=== PATIENT | female | born 1960 | race Caucasian/White ===

== ENCOUNTER → 2018-09-06 | Outpatient (REF) | payer OTHER ==
[2018-09-06 11:59] LABS: BASO % 0.6 % (0.0-1.0); EOS % 0.3 % (0.0-3.0); LYMPH # 1.3 10^3/uL (1.5-4.5); LYMPH % 19.3 % (24.0-44.0); MEAN CORPUSCULAR HEMOGLOBIN 28.2 pg (27.0-33.0); MEAN CORPUSCULAR HGB CONC 32.6 g/dl (32.0-36.5); MEAN CORPUSCULAR VOLUME 86.7 fl (80.0-96.0); MONO # 0.5 10^3/uL (0.0-0.8); MONO % 6.9 % (0.0-5.0); NEUTROPHILS % 72.6 % (36.0-66.0); PLATELET COUNT, AUTOMATED 227 10^3/uL (150-450); RED BLOOD COUNT 4.96 10^6/uL (4.00-5.40); WHITE BLOOD COUNT 6.9 10^3/uL (4.0-10.0)
[2018-09-06 12:14] LABS: ALBUMIN 4.2 GM/DL (3.2-5.2); ALT/SGPT 30 U/L (12-78); BILIRUBIN,TOTAL 0.5 MG/DL (0.2-1.0); BLOOD UREA NITROGEN 16 MG/DL (7-18); CALCIUM LEVEL 9.2 MG/DL (8.5-10.1); CARBON DIOXIDE LEVEL 29 MEQ/L (21-32); CHLORIDE LEVEL 104 MEQ/L (98-107); CHOLESTEROL LEVEL 216 MG/DL (<200); FREE T4 1.11 NG/DL (0.76-1.46); GLOMERULAR FILTRATION RATE > 60.0 (>51); GLUCOSE, FASTING 104 MG/DL (70-100); HDL CHOLESTEROL 69 MG/DL (>40); LDL CHOLESTEROL 135 MG/DL (<100); NON-HDL-C 147 MG/DL; SODIUM LEVEL 140 MEQ/L (136-145); TOTAL PROTEIN 7.4 GM/DL (6.4-8.2); TRIGLYCERIDES LEVEL 62 MG/DL (<150)
[2018-09-06 12:16] LABS: PTH INTACT 46.9 PG/ML (18.5-88.0)
[2018-09-06 12:29] LABS: HEMOGLOBIN A1c 5.6 %
== END ==
LOC: M SFHCPLAZ 10:20
PROVIDERS: ATTEND Nurse Practitioner Family
DX: Z13.228 Encounter for screening for other metabolic disorders (principal); F32.9 Major depressive disorder, single episode, unspecified; E55.9 Vitamin D deficiency, unspecified

== ENCOUNTER → 2018-09-18 | Outpatient (CLI) | payer OTHER | LOC: M WHC 14:27 | PROVIDERS: ATTEND Nurse Practitioner Family | DX: Z12.31 Encounter for screening mammogram for malignant neoplasm of breast (principal) ==

== ENCOUNTER → 2018-10-02 | Outpatient (REF) | payer OTHER | LOC: M SFHCPLAZ 10:11 | PROVIDERS: ATTEND Nurse Practitioner Family | DX: Z01.419 Encounter for gynecological examination (general) (routine) without abnormal findings (principal) ==

== ENCOUNTER → 2020-09-08 | Outpatient (REF) | payer OTHER ==
[2020-09-08 10:07] LABS: HEMOGLOBIN 13.8 g/dl (12.0-15.5); MEAN CORPUSCULAR HEMOGLOBIN 28.7 pg (27.0-33.0); MEAN CORPUSCULAR HGB CONC 32.9 g/dl (32.0-36.5); MEAN CORPUSCULAR VOLUME 87.3 fl (80.0-96.0); PLATELET COUNT, AUTOMATED 216 10^3/uL (150-450); RED BLOOD COUNT 4.81 10^6/uL (4.00-5.40); WHITE BLOOD COUNT 7.1 10^3/uL (4.0-10.0)
[2020-09-08 10:53] LABS: HEMOGLOBIN A1c 5.4 %
[2020-09-08 10:56] LABS: ALBUMIN 3.7 GM/DL (3.2-5.2); ALT/SGPT 16 U/L (12-78); BILIRUBIN,TOTAL 0.9 MG/DL (0.2-1.0); BLOOD UREA NITROGEN 18 MG/DL (7-18); CALCIUM LEVEL 9.7 MG/DL (8.8-10.2); CARBON DIOXIDE LEVEL 28 MEQ/L (21-32); CHLORIDE LEVEL 107 MEQ/L (98-107); CHOLESTEROL LEVEL 200 MG/DL (<200); CREATININE FOR GFR 0.76 MG/DL (0.55-1.30); FREE T4 0.97 NG/DL (0.76-1.46); GLOMERULAR FILTRATION RATE > 60.0 (>45); GLUCOSE, FASTING 81 MG/DL (70-100); HDL CHOLESTEROL 66 MG/DL (>40); LDL CHOLESTEROL 119 MG/DL (<100); NON-HDL-C 134 MG/DL; POTASSIUM SERUM 4.8 MEQ/L (3.5-5.1); SODIUM LEVEL 141 MEQ/L (136-145); TOTAL PROTEIN 6.9 GM/DL (6.4-8.2); TRIGLYCERIDES LEVEL 77 MG/DL (<150)
[2020-09-08 12:09] LABS: TOTAL 25(OH) VITAMIN D 42.9 NG/ML (30.0-100.0)
== END ==
LOC: M SFHCPLAZ 08:08
PROVIDERS: ATTEND Nurse Practitioner Family
DX: R73.01 Impaired fasting glucose (principal); E78.5 Hyperlipidemia, unspecified; E55.9 Vitamin D deficiency, unspecified

== ENCOUNTER → 2020-10-04 | Outpatient (CLI) | payer OTHER ==
--- NOTE | 2020-10-04 14:00 | REPMRS ---
Patient History The patient states she had a clinical breast exam in 08/2020. Patient is postmenopausal. No known family history of cancer. Benign stereotactic core biopsy of the left breast, 2000. No Hormone Replacement Therapy Patient states no breast complaints today. Patient has signed MRS History Sheet. Digital Woman Screen Mammo: October 04, 2020 - Exam #: [id number] Bilateral CC and MLO view(s) were taken. Technologist: Clemencia Hazel, Technologist Prior study comparison: September 18, 2018, bilateral digital woman screen mammo performed at [facility]. 2016, bilateral digital mammo screening bilat, performed at [facility]. FINDINGS: The breast tissue is heterogeneously dense. This may lower the sensitivity of mammography. Screening. Digital screening (2D) mammography was performed bilaterally in the CC and MLO projections. Additionally, breast tomosynthesis (3D mammography) was performed bilaterally in the CC and MLO projections. Todays exam was compared to the prior exams(s). By history, the patient has no complaints of a palpable breast abnormality or other significant breast complaints. The breasts are unchanged in size and shape. Once again, dense heterogenous fibroglandular elements are seen bilaterally in a stable appearing pattern but to such a degree that the sensitivity of the mammogram in detecting cancer is decreased.There are no jl-soft tissue densities or spiculated masses. There is no internal architectural distortion. There are no suspicious jl-calcific clusters. Skin thickening or nipple retraction is not present. IMPRESSION: BI-RADS Category 2- Benign Findings(s). There is no evidence of malignant alteration of the breasts. Followup examination recommended in one year. The Volpara volumetric breast density category is C, the breasts are heterogenously dense which may obscure small masses.This mammogram was read with the assistance of Prematics,an FDA approved computer aided detection system for mammography.The lifetime Tyrer-Cuzick score is 5.8 % Negative x-ray reports should not delay surgical consultation if a dominant or clinically suspicious mass is present. Findings: Not all breast cancers can be identified by mammography. Therefore, we recommend that you continue to perform regular breast self-examination and physical examination and then promptly contact your physician of any concerns or changes. Adenosis and dense breasts may obscure an underlying neoplasm. Assessment: BI-RADS/ACR category 2 mammogram. Benign Findings. Recommendation Routine screening mammogram of both breasts in 1 year. Electronically Signed By: Alex Johnson DO 10/04/20 [id number]
--- NOTE | 2020-10-04 15:04 | DEXAMM ---
INDICATION: M85.80 OSTEOPENIA. COMPARISON: None. TECHNIQUE: Bone density was measured using dual-energy x-ray absorptiometry (DEXA). FINDINGS: AP SPINE L1-L4 BMD 1.263 g/cm2 Young Adult T-Score 0.6 Age Matched Z-Score 1.9. LT FEMUR, TOTAL BMD 0.804 g/cm2 Young Adult T-Score -1.6 Age Matched Z-Score -0.6. LT NECK BMD 0.783 g/cm2 Young Adult T-Score -1.8 Age Matched Z-Score -0.5. RT FEMUR, TOTAL BMD 0.806 g/cm2 Young Adult T-Score is -1.6 Age Matched Z-Score -0.6. RT NECK BMD 0.754 g/cm2 Young Adult T-Score -2.0 Age Matched Z-Score -0.8. IMPRESSION: There is normal bone density of the spine. There is low bone density of the left hip. There is low bone density of the right hip. FOLLOW-UP: Recommendation for the next bone density exam: 2 years. <Electronically signed by Constantino Hairston > 10/04/20 [id number]
== END ==
LOC: M WHC 12:49
PROVIDERS: ATTEND Nurse Practitioner Family
DX: Z12.31 Encounter for screening mammogram for malignant neoplasm of breast (principal); M85.851 Other specified disorders of bone density and structure, right thigh; M85.852 Other specified disorders of bone density and structure, left thigh

== ENCOUNTER 2020-11-06 16:52 | Inpatient (IN) | payer OTHER ==
[~2020-11-06] VITALS: Ht 160 cm; Wt 58.9 kg
--- NOTE | 2020-11-06 17:25 | REP ---
INDICATION: Altered Mental Status COMPARISON: None. TECHNIQUE: Portable AP view of the chest FINDINGS: The mediastinum and cardiac silhouette are within normal limits for portable technique. The lung delaney are clear without acute consolidation, effusion, or pneumothorax. Skeletal structures are intact. IMPRESSION: No acute cardiopulmonary process appreciated. <Electronically signed by Wm Candelaria > 11/06/20 [id number]
[2020-11-06 17:46] LABS: BASO % 0.7 % (0.0-1.0); EOS # 0.2 10^3/uL (0.0-0.5); EOS % 3.6 % (0.0-3.0); HEMATOCRIT 41.9 % (36.0-47.0); HEMOGLOBIN 13.6 g/dl (12.0-15.5); LYMPH # 1.6 10^3/uL (1.5-5.0); LYMPH % 25.5 % (24.0-44.0); MEAN CORPUSCULAR HEMOGLOBIN 27.9 pg (27.0-33.0); MEAN CORPUSCULAR HGB CONC 32.5 g/dl (32.0-36.5); MEAN CORPUSCULAR VOLUME 85.9 fl (80.0-96.0); MONO # 0.5 10^3/uL (0.0-0.8); MONO % 7.6 % (2.0-8.0); NEUTROPHILS # 3.8 10^3/uL (1.5-8.5); NEUTROPHILS % 62.4 % (36.0-66.0); PLATELET COUNT, AUTOMATED 210 10^3/uL (150-450); RED BLOOD COUNT 4.88 10^6/uL (4.00-5.40); WHITE BLOOD COUNT 6.1 10^3/uL (4.0-10.0)
[2020-11-06 18:24] LABS: ACETAMINOPHEN LEVEL < 2.0 UG/ML (10.0-30.0); ALT/SGPT 25 U/L (12-78); BILIRUBIN,DIRECT 0.1 MG/DL (0.0-0.2); BILIRUBIN,TOTAL 0.5 MG/DL (0.2-1.0); BLOOD UREA NITROGEN 21 MG/DL (7-18); CALCIUM LEVEL 9.3 MG/DL (8.8-10.2); CARBON DIOXIDE LEVEL 27 MEQ/L (21-32); CHLORIDE LEVEL 103 MEQ/L (98-107); CK-MB VALUE MASS 4.9 NG/ML (<3.6); CPK CREATINE PHOSPHOKINASE 174 U/L (26-192); ETHYL ALCOHOL (ETHANOL) < 0.003 % (0.000-0.010); GLOMERULAR FILTRATION RATE > 60.0 (>45); GLUCOSE, FASTING 98 MG/DL (70-100); MB/CK RELATIVE INDEX 2.82 (< OR =4); POTASSIUM SERUM 3.8 MEQ/L (3.5-5.1); SALICYLATE LEVEL < 1.7 MG/DL (5.0-30.0); SODIUM LEVEL 137 MEQ/L (136-145); TOTAL PROTEIN 7.4 GM/DL (6.4-8.2); TROPONIN I < 0.02 NG/ML (< 0.10)
[2020-11-06 18:37] LABS: RSV AMPLIFICATION NEGATIVE (NEGATIVE)
--- NOTE | 2020-11-06 19:04 | REPVR ---
PROCEDURE INFORMATION: Exam: CT Head Without Contrast Exam date and time: 11/06/2020 5:57 PM Age: 60 years old Clinical indication: Altered mental status/memory loss; Confusion or disorientation TECHNIQUE: Imaging protocol: Computed tomography of the head without contrast. Radiation optimization: All CT scans at this facility use at least one of these dose optimization techniques: automated exposure control; mA and/or kV adjustment per patient size (includes targeted exams where dose is matched to clinical indication); or iterative reconstruction. COMPARISON: No relevant prior studies available. FINDINGS: Brain: Small chronic appearing lacunar infarcts are visualized within the right cerebellar lobe. No acute intracranial hemorrhage is visualized. The white-redd differentiation is preserved demonstrating no acute territorial type infarct. There is no midline shift. Artifact limits evaluation of the mellisa. Cerebral ventricles: There is mild prominence of the ventricles and sulci, compatible with atrophy. Paranasal sinuses: Visualized sinuses are unremarkable. No fluid levels. Mastoid air cells: No mastoid effusion. Vasculature: Intracranial atherosclerosis visualized. Bones/joints: The calvarium demonstrates no evidence for a depressed fracture. Soft tissues: Unremarkable. IMPRESSION: 1. No acute intracranial hemorrhage or acute territorial type infarct. 2. Mild atrophy. 3. If further evaluation is clinically indicated, an MRI of the brain is recommended. Electronically signed by: Isael Sultana On 11/06/2020 19:03:31 PM
[2020-11-06] MEDS ORDERED: CITA20TA6 PO (19:25)
[2020-11-06] MEDS ORDERED: ECOT81TA5 PO (19:25)
[2020-11-06] MEDS ORDERED: D3 S20002 PO (19:25)
[2020-11-06] MEDS ORDERED: MAALOX 30 ML SUSP *UDC PO PRN (19:50)
[2020-11-06] MEDS ORDERED: MOM 30ML SUSPENSION UDC PO PRN (19:50)
--- NOTE | 2020-11-06 19:54 | ECGEPIP ---
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
--- NOTE | 2020-11-06 20:03 | HPEPDOC ---
[facility] Medical History & Physical Date of Admission Nov 06, 2020 Date of Service: Nov 06, 2020 History and Physical CHIEF COMPLAINT: Syncope and collapse HISTORY OF PRESENT ILLNESS: 60-year-old female with no known past medical history is brought in by EMS after being found on the ground and unresponsive at work. Patient regained consciousness and was alert and oriented in the emergency department she tells me she didn't recall what happened she knows that she fell and hit her head she also should she be her tongue when she woke up but she did not pass urine. She says she has a headache but she thinks is her seasonal allergies although she did endorse a bump on the back of her head where she fell. She denies any fevers chills chest pain and shortness of breath. She endorses a history of waking up in the middle the night approximately one month ago where she also be her tongue and it accidentally passed urine. She tells me this had never happened prior to that date. She denies a family history of seizures and denies ever having seizures herself. In the emergency department CT of the head was done does not s how intracranial hemorrhage. MRI brain was ordered. I discussed the case with our neurologist Dr. Alatorre who recommended patient be admitted for possible seizures and to start Keppra 500 mg twice a day and obtain EEG. PAST MEDICAL/SURGICAL HISTORY: Does not endorse past medical problems Appendectomy Left knee surgery Left elbow surgery SOCIAL HISTORY: Denies alcohol use currently she quit drinking many years Denies tobacco use currently she quit smoking many years ago Denies illicit drug use Works at [employer] FAMILY HISTORY: No family history of seizures ALLERGIES: Please see below. REVIEW OF SYSTEMS: 10 point review of systems complete all negative otherwise stated in HPI HOME MEDICATIONS: Please see below. PHYSICAL EXAMINATION: Constitutional: Awake and alert, in no apparent distress ENT: Sclera are clear. Mucosa is moist. Respiratory: Lungs CTA bilaterally. No respiratory distress. Cardiovascular: RRR S1 and S2 are normal, no murmur Gastrointestinal: Abdomen is soft, non distended, non tender, BS present. Musculoskeletal: No lower extremity edema. Neurologic: No focal neurological deficit. Mental Status: A&O x3, normal affect Skin: Scalp hematoma on the left side approximately 2 cm in diameter LABORATORY DATA: See below. IMAGING: See chart MICROBIOLOGY: Please see below. ee ASSESSMENT/PLAN 60-year-old female with no past medical history presents with syncope and collapse at work suspected to be from undiagnosed seizure activity. Patient made for further workup and management. # Suspected seizure: Discussed with Dr Alatorre neurologist. Will give her Keppra 500 BID. Fu MRI. EEG on Sunday. # Scalp hematoma: CT shows no intracranial hemorrhage from the fall. monitor. # DVT prophylaxis: ambulating. SCDs/TEDs only for now due to hematoma on scalp A Yousef Hospitalist Vital Signs Vital Signs Date Time Temp Pulse Resp B/P (MAP) Pulse Ox O2 Delivery O2 Flow Rate FiO2 11/06/20 19:00 67 18 155/77 (103) 96 Room Air 11/06/20 17:30 97.7 Laboratory Data Labs 24H Laboratory Tests 2 11/06/20 17:08: Immature Granulocyte % (Auto) 0.2, Neutrophils (%) (Auto) 62.4, Lymphocytes (%) (Auto) 25.5, Monocytes (%) (Auto) 7.6, Eosinophils (%) (Auto) 3.6H, Basophils (%) (Auto) 0.7, Neutrophils # (Auto) 3.8, Lymphocytes # (Auto) 1.6, Monocytes # (Auto) 0.5, Eosinophils # (Auto) 0.2, Basophils # (Auto) 0.0, Nucleated Red Blood Cells % (auto) 0.0, Anion Gap 7L, Glomerular Filtration Rate > 60.0, Calcium Level 9.3, Total Bilirubin 0.5, Direct Bilirubin 0.1, Aspartate Amino Transf (AST/SGOT) 28, Alanine Aminotransferase (ALT/SGPT) 25, Alkaline Phosphatase 71, Total Creatine Kinase 174, Creatine Kinase MB 4.9H, Creatine Kinase MB Relative Index 2.82, Troponin I < 0.02, Total Protein 7.4, Albumin 4.0, Albumin/Globulin Ratio 1.2, Thyroid Stimulating Hormone (TSH) 3.050, Salicylates Level < 1.7L, Acetaminophen Level < 2.0L, Ethyl Alcohol Level < 0.003 11/06/20 17:28: Coronavirus (COVID-19)(PCR) NEGATIVE, Influenza Type A (RT-PCR) NEGATIVE, Influenza Type B (RT-PCR) NEGATIVE, Respiratory Syncytial Virus (PCR) NEGATIVE CBC/BMP Laboratory Tests 11/06/20 17:08 Home Medications Scheduled Aspirin (Ecotrin) 81 Mg Tablet.dr, 81 MG PO DAILY Cholecalciferol (Vitamin D3) (Vitamin D3) 50 Mcg Capsule, 50 MCG PO DAILY Citalopram Hydrobromide (Citalopram HBr) 20 Mg Tablet, 20 MG PO DAILY Allergies Coded Allergies: No Known Allergies (Unverified , 11/06/20) A-FIB/CHADSVASC A-FIB History Current/History of A-Fib/PAF?: No JOSE MARCUS MD Nov 06, 2020 20:03
--- NOTE | 2020-11-06 21:28 | REPVR ---
PROCEDURE INFORMATION: Exam: MRA Head Without Contrast; Arteriography Exam date and time: 11/06/2020 8:54 PM Age: 60 years old Clinical indication: Syncope and collapse; Patient HX: PT states she passed out at work earlier today and came to in the ED no other symptoms. Nki, no prior mri; Additional info: CVA TECHNIQUE: Imaging protocol: Magnetic resonance angiography head without contrast. Exam focused on the arteries. COMPARISON: CT Head without contrast 11/06/2020 5:56 PM FINDINGS: ANTERIOR CIRCULATION: Right internal carotid artery: Intracranial segment is patent with no significant stenosis. No aneurysm. Right middle cerebral artery: No occlusion or significant stenosis. No aneurysm. Right anterior cerebral artery: No occlusion or significant stenosis. No aneurysm. Left internal carotid artery: Intracranial segment is patent with no significant stenosis. No aneurysm. 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 No significant stenosis or occlusion of this vessel. No aneurysm. Left anterior cerebral artery: No occlusion or significant stenosis. No aneurysm. POSTERIOR CIRCULATION: Right vertebral artery: A dominant right vertebral artery is identified. No significant stenosis or occlusion of the right vertebral artery. 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 There is asymmetric decreased signal intensity/flow distally. Basilar artery: No occlusion or significant stenosis. No aneurysm. Right posterior cerebral artery: Hypoplasia of the P1 segment of the right posterior cerebral artery. No significant stenosis or occlusion of the remaining right CHANGEOVER OPERATOR. The right posterior communicating artery is patent. No aneurysm. Left posterior cerebral artery: Hypoplasia of the P1 segment of the left posterior cerebral artery. No significant stenosis or occlusion of the remaining left CHANGEOVER OPERATOR. The left posterior communicating artery is patent. No aneurysm. IMPRESSION: 1. No large vessel arterial occlusion on this MRA head study. 2. A dominant right vertebral artery is identified. 3. 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 There is asymmetric decreased signal intensity/flow distally. 4. 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 5. Additional findings described above. Electronically signed by: Isael Sultana On 11/06/2020 21:28:17 PM
--- NOTE | 2020-11-06 21:39 | REPVR ---
PROCEDURE INFORMATION: Exam: MR Head Without Contrast Exam date and time: 11/06/2020 8:54 PM Age: 60 years old Clinical indication: Alteration of consciousness; Syncope and collapse; Patient HX: PT states she passed out at work earlier today and came to in the ED no other symptoms. Nki, no prior mri; Additional info: CVA TECHNIQUE: Imaging protocol: MR of the head without contrast. COMPARISON: CT Head without contrast 11/06/2020 5:56 PM FINDINGS: Brain: No restricted diffusion within the brain to suggest an acute infarct. Multiple small chronic lacunar infarcts are identified within the bilateral cerebellar lobes. Small chronic lacunar infarcts are also visualized within the left caudate head. A few tiny foci of FLAIR hyperintensity are visualized within the mellisa, suggestive of chronic ischemic changes. There are scattered foci of FLAIR hyperintensity within the cerebral white matter. There is no mass effect or restricted diffusion associated with these foci. In a patient this age, this likely represents chronic small vessel ischemic disease. No magnetic susceptibility intracerebral blood products/hemosiderin visualized. Cerebral ventricles: There is mild prominence of the ventricles and sulci, compatible with atrophy. Bones/joints: T1 hypointensity is identified in the bone marrow of the C3 vertebral body, although this is likely contributed by artifact with similar hypointensity within the posterior paraspinal soft tissues at this level. Evaluation of the cervical spine is limited. Paranasal sinuses: Minimal mucosal thickening of ethmoid air cells bilaterally. Mastoid air cells: Minimal mucosal thickening/effusion within right mastoid air cells. Orbital cavity: Unremarkable. Soft tissues: Soft tissue swelling/hematoma of the left posterior scalp. IMPRESSION: 1. No acute infarct. 2. Multiple small chronic lacunar infarcts are identified within the bilateral cerebellar lobes. Small chronic lacunar infarcts are also visualized within the left caudate head. 3. Mild white matter disease, likely representing chronic small vessel ischemic disease. 4. Mild atrophy. 5. Soft tissue swelling/hematoma of the left posterior scalp. 6. Additional findings described above. Electronically signed by: Isael Sultana On 11/06/2020 21:38:16 PM
[2020-11-06 21:50] VITALS: BP_SYST 121; BP_SYST 135; BP_SYST 138; BP_DIAS 66; BP_DIAS 77; BP_DIAS 79
[2020-11-06] MEDS: levETIRAcetam 250MG TABLET (KEPPRA) PO SCH (22:31)
[2020-11-06] MEDS: DOCUSATE SODIUM 100MG CAPSULE PO SCH (22:32)
[2020-11-07 06:00] VITALS: BP 101/59
[2020-11-07 06:00] LABS: HEMATOCRIT 40.9 % (36.0-47.0); HEMOGLOBIN 13.3 g/dl (12.0-15.5); MEAN CORPUSCULAR HEMOGLOBIN 27.9 pg (27.0-33.0); MEAN CORPUSCULAR HGB CONC 32.5 g/dl (32.0-36.5); MEAN CORPUSCULAR VOLUME 85.7 fl (80.0-96.0); PLATELET COUNT, AUTOMATED 197 10^3/uL (150-450); RED BLOOD COUNT 4.77 10^6/uL (4.00-5.40); WHITE BLOOD COUNT 7.7 10^3/uL (4.0-10.0)
[2020-11-07 06:36] LABS: BLOOD UREA NITROGEN 16 MG/DL (7-18); CALCIUM LEVEL 9.4 MG/DL (8.8-10.2); CARBON DIOXIDE LEVEL 30 MEQ/L (21-32); CHLORIDE LEVEL 106 MEQ/L (98-107); CREATININE FOR GFR 0.69 MG/DL (0.55-1.30); GLOMERULAR FILTRATION RATE > 60.0 (>45); GLUCOSE, FASTING 95 MG/DL (70-100); SODIUM LEVEL 140 MEQ/L (136-145)
[2020-11-07] MEDS: DOCUSATE SODIUM 100MG CAPSULE PO SCH ×2 (08:31→20:02)
[2020-11-07] MEDS: CitaloPRAM (CeleXA) 20 MG TAB PO SCH (08:31)
[2020-11-07] MEDS: levETIRAcetam 250MG TABLET (KEPPRA) PO SCH ×2 (08:31→20:02)
[2020-11-07 14:00] VITALS: BP 117/66
--- NOTE | 2020-11-07 16:34 | IPNPDOC ---
Subjective Date Seen The patient was seen on 11/07/20. Subjective Chief Complaint/HPI Mrs. Chaves is a 60 year old female who is here after being found unresponsive on the ground at work. This morning, she denies any chest pain or dyspnea. Will have to wait till Sunday for EEG. Objective Physical Examination General Exam: Positive: Alert, Cooperative Eye Exam: Negative: Sclera icteric Neck Exam: Positive: Supple Chest Exam: Positive: Clear to auscultation; Negative: Rales, Rhonchi, Wheezing Heart Exam: Positive: Rate Normal, Regular Rhythm Abdomen Exam: Positive: Normal bowel sounds, Soft; Negative: Tenderness Extremity Exam: Negative: Edema Neuro Exam: Positive: Cranial Nerves 3-12 NL Psych Exam: Positive: Mental status NL, Mood NL Assessment /Plan Assessment Mrs. Chaves is a 60 year old female who is here after being found unresponsive on the ground at work. On admission, case with discussed with Dr. Devi. Recommended Keppra 500mg BID, MRI, and EEG on Sunday. MRI was negative for acute infarct, but she has multiple small chronic lacunar infarcts and chronic small vessel ischemic disease. 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 Plan/VTE VTE Prophylaxis Ordered?: Yes Plan 1. Seizure -Keppra 500mg BID -MRI negative for acute stroke, but demonstrates multiple chronic lacunar infarcts and small vessel ischemic disease -MRA negative for LVO, but demonstrates hypoplastic left vertebral artery -Pending EEG for Sunday 2. Scalp hematoma -/ fall -Monitor 3. DVT ppx -Due to hematoma, no chemical ppx -SCD and TEDs Disposition: Pending EEG. VS, I&O, 24H, Fishbone Vital Signs/I&O Vital Signs Date Time Temp Pulse Resp B/P (MAP) Pulse Ox O2 Delivery O2 Flow Rate FiO2 11/07/20 14:00 98.1 64 18 117/66 (83) 96 Room Air I&O- Last 24 Hours up to 6 AM 11/07/20 06:00 Intake Total 430 ml Output Total 800 ml Balance -370 ml Laboratory Data 24H LABS Laboratory Tests 2 11/06/20 17:08: Immature Granulocyte % (Auto) 0.2, Neutrophils (%) (Auto) 62.4, Lymphocytes (%) (Auto) 25.5, Monocytes (%) (Auto) 7.6, Eosinophils (%) (Auto) 3.6H, Basophils (%) (Auto) 0.7, Neutrophils # (Auto) 3.8, Lymphocytes # (Auto) 1.6, Monocytes # (Auto) 0.5, Eosinophils # (Auto) 0.2, Basophils # (Auto) 0.0, Nucleated Red Blood Cells % (auto) 0.0, Anion Gap 7L, Glomerular Filtration Rate > 60.0, Calcium Level 9.3, Total Bilirubin 0.5, Direct Bilirubin 0.1, Aspartate Amino Transf (AST/SGOT) 28, Alanine Aminotransferase (ALT/SGPT) 25, Alkaline Phosphatase 71, Total Creatine Kinase 174, Creatine Kinase MB 4.9H, Creatine Kinase MB Relative Index 2.82, Troponin I < 0.02, Total Protein 7.4, Albumin 4.0, Albumin/Globulin Ratio 1.2, Thyroid Stimulating Hormone (TSH) 3.050, Salicylates Level < 1.7L, Acetaminophen Level < 2.0L, Ethyl Alcohol Level < 0.003 11/06/20 17:28: Coronavirus (COVID-19)(PCR) NEGATIVE, Influenza Type A (RT-PCR) NEGATIVE, Influenza Type B (RT-PCR) NEGATIVE, Respiratory Syncytial Virus (PCR) NEGATIVE 11/07/20 05:43: Nucleated Red Blood Cells % (auto) 0.0, Anion Gap 4L, Glomerular Filtration Rate > 60.0, Calcium Level 9.4 CBC/BMP Laboratory Tests 11/06/20 17:08 11/07/20 05:43 WAQAS RODRIGUEZ 6, 2021 16:34
[2020-11-07] MEDS: ACETAMINOPHEN TAB 650MG DOSE (2X325MG) PO PRN (20:02)
[2020-11-07 22:00] VITALS: BP 96/64
[2020-11-08 05:50] LABS: HEMATOCRIT 39.4 % (36.0-47.0); HEMOGLOBIN 12.7 g/dl (12.0-15.5); MEAN CORPUSCULAR HEMOGLOBIN 27.9 pg (27.0-33.0); MEAN CORPUSCULAR HGB CONC 32.2 g/dl (32.0-36.5); MEAN CORPUSCULAR VOLUME 86.6 fl (80.0-96.0); PLATELET COUNT, AUTOMATED 180 10^3/uL (150-450); RED BLOOD COUNT 4.55 10^6/uL (4.00-5.40); WHITE BLOOD COUNT 5.3 10^3/uL (4.0-10.0)
[2020-11-08 06:00] VITALS: BP_SYST 98; BP_DIAS 0; BP_DIAS 60
[2020-11-08 06:16] LABS: BLOOD UREA NITROGEN 16 MG/DL (7-18); CALCIUM LEVEL 8.5 MG/DL (8.8-10.2); CARBON DIOXIDE LEVEL 28 MEQ/L (21-32); CHLORIDE LEVEL 108 MEQ/L (98-107); CREATININE FOR GFR 0.68 MG/DL (0.55-1.30); GLOMERULAR FILTRATION RATE > 60.0 (>45); GLUCOSE, FASTING 84 MG/DL (70-100); POTASSIUM SERUM 3.9 MEQ/L (3.5-5.1); SODIUM LEVEL 140 MEQ/L (136-145)
[2020-11-08] MEDS: CitaloPRAM (CeleXA) 20 MG TAB PO SCH (08:51)
[2020-11-08] MEDS: DOCUSATE SODIUM 100MG CAPSULE PO SCH (08:51)
[2020-11-08] MEDS: levETIRAcetam 250MG TABLET (KEPPRA) PO SCH (08:52)
[2020-11-08 09:00] VITALS: BP_SYST 107; BP_SYST 108; BP_SYST 98; BP_DIAS 60; BP_DIAS 71
[2020-11-08] MEDS: ACETAMINOPHEN TAB 650MG DOSE (2X325MG) PO PRN (10:06)
[2020-11-08 14:00] VITALS: BP 144/86
[2020-11-08] MEDS ORDERED: LEVE500T5 PO (14:48)
--- NOTE | 2020-11-08 23:13 | DS.PDOC ---
Discharge Summary General Date of Admission Nov 06, 2020 at 19:46 Date of Discharge Nov 08, 2020 Discharge Summary PROCEDURES PERFORMED DURING STAY: None. ADMITTING DIAGNOSES: 1. Seizure 2. Scalp hematoma DISCHARGE DIAGNOSES: 1. Seizure 2. Scalp hematoma COMPLICATIONS/CHIEF COMPLAINT: Syncope. HISTORY OF PRESENT ILLNESS: 60-year-old female with no known past medical history is brought in by EMS after being found on the ground and unresponsive at work. Patient regained consciousness and was alert and oriented in the emergency department she tells me she didn't recall what happened she knows that she fell and hit her head she also should she be her tongue when she woke up but she did not pass urine. She says she has a headache but she thinks is her seasonal allergies although she did endorse a bump on the back of her head where she fell. She denies any fevers chills chest pain and shortness of breath. She endorses a history of waking up in the middle the night approximately one month ago where she also be her tongue and it accidentally passed urine. She tells me this had never happened prior to that date. She denies a family history of seizures and denies ever having seizures herself. In the emergency department CT of the head was done does not show intracranial hemorrhage. MRI brain was ordered. I discussed the case with our neurologist Dr. Alatorre who recommended patient be admitted for possible seizures and to start Keppra 500 mg twice a day and obtain EEG. HOSPITAL COURSE: She did well during her hospitalization. No further seizures. MRI was negative for acute stroke although she has chronic lacunar infarcts. EEG could not be performed over the weekend, and patient stayed until Sunday. Today, patient felt well and felt ready for home. After EEG, patient was discharged home. Due to recent seizure, patient is not allowed to drive, operate heavy machinery, climb to high positions (using ladders), or swimming alone for at least 6 months or until cleared by neurology. DISCHARGE MEDICATIONS: Please see below. ALLERGIES: Please see below. PHYSICAL EXAMINATION ON DISCHARGE: VITAL SIGNS: Please see below. GENERAL: Comfortable, in no apparent distress HEENT: Head normocephalic, atraumatic NECK: Supple CARDIOVASCULAR EXAMINATION: Regular rate and rhythm RESPIRATORY EXAMINATION: Lungs clear to auscultation bilaterally ABDOMINAL EXAMINATION: Soft, non-tender, normal bowel sounds EXTREMITIES: No pitting edema bilaterally SKIN: Warm and dry NEUROLOGICAL EXAMINATION: CN 3-12 grossly intact PSYCHIATRIC EXAMINATION: Normal mood and affect LABORATORY DATA: Please see below. IMAGING: Radiologist interpretation, please see radiologist report for full details MRI Brain without contrast 1. No acute infarct. 2. Multiple small chronic lacunar infarcts are identified within the bilateral cerebellar lobes. Small chronic lacunar infarcts are also visualized within the left caudate head. 3. Mild white matter disease, likely representing chronic small vessel ischemic disease. 4. Mild atrophy. 5. Soft tissue swelling/hematoma of the left posterior scalp. 6. Additional findings described above. MRA head without contrast 1. No large vessel arterial occlusion on this MRA head study. 2. A dominant right vertebral artery is identified. 3. 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 There is asymmetric decreased signal intensity/flow distally. 4. 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 5. Additional findings described above. CT head without contrast 1. No acute intracranial hemorrhage or acute territorial type infarct. 2. Mild atrophy. 3. If further evaluation is clinically indicated, an MRI of the brain is recommended. CXR No acute cardiopulmonary process appreciated. PROGNOSIS: Good ACTIVITY: As tolerated. DIET: As tolerated DISCHARGE PLAN: Home DISPOSITION: 01 Home, Self-Care. DISCHARGE INSTRUCTIONS: 1. Follow up with PCP in 1 week 2. Follow up with neurology in 1 week 3. No driving, operating heavy machinery, climbing to high positions (using ladders), or swimming alone for at least 6 months or until cleared by neurology. DISCHARGE CONDITION: Stable. Total time spent on discharge planning, discharge summary, and medication reconciliation: 50 minutes Vital Signs/I&Os Vital Signs Date Time Temp Pulse Resp B/P (MAP) Pulse Ox O2 Delivery O2 Flow Rate FiO2 11/08/20 14:00 97.7 53 19 144/86 (105) 94 11/07/20 22:00 Room Air I&O- Last 24 Hours up to 6 AM 11/08/20 06:00 Intake Total 1750 ml Output Total 0 ml Balance 1750 ml Laboratory Data Labs 24H Laboratory Tests 2 11/08/20 05:27: Nucleated Red Blood Cells % (auto) 0.0, Anion Gap 4L, Glomerular Filtration Rate > 60.0, Calcium Level 8.5L CBC/BMP Laboratory Tests 11/08/20 05:27 Discharge Medications Scheduled Aspirin (Ecotrin) 81 Mg Tablet.dr, 81 MG PO DAILY, (Reported) Cholecalciferol (Vitamin D3) (Vitamin D3) 50 Mcg Capsule, 50 MCG PO DAILY, (R eported) Citalopram Hydrobromide (Citalopram HBr) 20 Mg Tablet, 20 MG PO DAILY, (Reported) levETIRAcetam (levETIRAcetam) 500 Mg Tablet, 500 MG PO BID Allergies Coded Allergies: No Known Allergies (Unverified , 11/06/20) WAQAS RODRIGUEZ DO Nov 08, 2020 23:13
--- NOTE | 2020-11-09 09:48 | EEG ---
ELECTROENCEPHALOGRAM DATE: 11/07/2020 DIAGNOSIS: Suspected seizure. EEG# [id number]. REFERRING PHYSICIAN: Simeon Leger MD HISTORY: Patient is a 60-year-old woman who was admitted at [facility] due to an episode of unresponsiveness at work. This EEG was done to rule out epileptic potential. She is currently taking Keppra, citalopram, magnesium, etc. TECHNICAL DESCRIPTION: This digital EEG was recorded by 21-scalp, ear, and two EKG electrodes and was reviewed in bipolar and referential montages following reformatting in 10-20 international electrode placement system. INTERPRETATION: Patient was noted to be in awake and drowsy states during this EEG. Resting and awake background rhythm consisted of well-formed posterior dominant rhythm with anterior-posterior gradient comprising of 10 Hz alpha activity measuring 15-40 microvolts in amplitude, which was symmetric and reactive to eye opening. Attenuation of posterior dominant rhythm was seen during transition into drowsiness. Stage 1 and 2 sleep were reviewed and were symmetric bilaterally. Hyperventilation was not be performed. Photic stimulation remained unremarkable. EKG revealed normal sinus rhythm. No focal, lateralizing, or epileptiform abnormalities were seen. No relevant clinical activity was noted. CONCLUSION: This EEG in awake, drowsy states, stage 1 and 2 sleep is within normal limits.
== END 2020-11-08 16:14 | disposition home or self-care (01) | DRG 204 ==
LOC: M ED 16:52 → M ED INP 19:46 → ENRESERV 20:44 → M MSPAV 21:48
PROVIDERS: ADMIT Family Medicine; ATTEND Internal Medicine
DX: R55 Syncope and collapse (principal); S00.03XA Contusion of scalp, initial encounter; W18.30XA Fall on same level, unspecified, initial encounter; Y92.009 Unspecified place in unspecified non-institutional (private) residence as the place of occurrence of the external cause; Z79.82 Long term (current) use of aspirin; Z79.899 Other long term (current) drug therapy

== ENCOUNTER → 2021-03-30 | Outpatient (CLI) | payer OTHER ==
[~2021-03-30] MED LIST: CITA20TA6 PO; D3 S20002 PO; ECOT81TA5 PO; LEVE500T5 PO
[2021-03-30 16:03] LABS: BASO % 0.9 % (0.0-1.0); EOS # 0.3 10^3/uL (0.0-0.5); EOS % 6.8 % (0.0-3.0); HEMATOCRIT 38.3 % (36.0-47.0); HEMOGLOBIN 12.3 g/dl (12.0-15.5); LYMPH # 0.9 10^3/uL (1.5-5.0); LYMPH % 21.2 % (24.0-44.0); MEAN CORPUSCULAR HEMOGLOBIN 27.9 pg (27.0-33.0); MEAN CORPUSCULAR HGB CONC 32.1 g/dl (32.0-36.5); MEAN CORPUSCULAR VOLUME 86.8 fl (80.0-96.0); MONO # 0.4 10^3/uL (0.0-0.8); MONO % 9.8 % (2.0-8.0); NEUTROPHILS # 2.7 10^3/uL (1.5-8.5); NEUTROPHILS % 61.1 % (36.0-66.0); PLATELET COUNT, AUTOMATED 297 10^3/uL (150-450); RED BLOOD COUNT 4.41 10^6/uL (4.00-5.40); WHITE BLOOD COUNT 4.4 10^3/uL (4.0-10.0)
[2021-03-30 16:31] LABS: ALBUMIN 3.5 GM/DL (3.2-5.2); ALT/SGPT 73 U/L (12-78); BILIRUBIN,TOTAL 0.4 MG/DL (0.2-1.0); BLOOD UREA NITROGEN 14 MG/DL (7-18); C REACTIVE PROTEIN QUANTITATIV 1.39 MG/DL (0.00-0.30); CALCIUM LEVEL 9.2 MG/DL (8.8-10.2); CARBON DIOXIDE LEVEL 30 MEQ/L (21-32); CHLORIDE LEVEL 105 MEQ/L (98-107); CREATININE FOR GFR 0.73 MG/DL (0.55-1.30); GLOMERULAR FILTRATION RATE > 60.0 (>45); GLUCOSE, FASTING 83 MG/DL (70-100); POTASSIUM SERUM 4.2 MEQ/L (3.5-5.1); SODIUM LEVEL 139 MEQ/L (136-145); TOTAL PROTEIN 6.8 GM/DL (6.4-8.2)
[2021-03-30 17:47] LABS: ERYTHROCYTE SEDIMENTATION RATE 4 mm/hr (0-30)
== END ==
LOC: M WUC 14:10
PROVIDERS: ATTEND Physician Assistant
DX: R21 Rash and other nonspecific skin eruption (principal)

== ENCOUNTER → 2022-05-22 | Outpatient (CLI) | payer OTHER ==
[2022-05-22 15:41] LABS: BASO % 0.7 % (0.0-1.0); EOS # 0.1 10^3/uL (0.0-0.5); HEMATOCRIT 41.6 % (36.0-47.0); HEMOGLOBIN 13.4 g/dl (12.0-15.5); LYMPH # 1.6 10^3/uL (1.5-5.0); MEAN CORPUSCULAR HEMOGLOBIN 28.4 pg (27.0-33.0); MEAN CORPUSCULAR HGB CONC 32.2 g/dl (32.0-36.5); MEAN CORPUSCULAR VOLUME 88.1 fl (80.0-96.0); MONO # 0.5 10^3/uL (0.0-0.8); MONO % 7.8 % (2.0-8.0); NEUTROPHILS # 3.8 10^3/uL (1.5-8.5); NEUTROPHILS % 63.3 % (36.0-66.0); PLATELET COUNT, AUTOMATED 199 10^3/uL (150-450); RED BLOOD COUNT 4.72 10^6/uL (4.00-5.40)
[2022-05-22 16:00] LABS: ALBUMIN 3.8 G/DL (3.2-5.2); ALKALINE PHOSPHATASE 78 U/L (46-116); ALT/SGPT 17 U/L (7.0-40); AST/SGOT 21 U/L (<34); BILIRUBIN,TOTAL 0.4 MG/DL (0.3-1.2); BLOOD UREA NITROGEN 18 MG/DL (9-23); CALCIUM LEVEL 9.3 MG/DL (8.3-10.6); CARBON DIOXIDE LEVEL 25 MMOL/L (20-31); CHLORIDE LEVEL 104 MMOL/L (98-107); CREATININE FOR GFR 0.78 MG/DL (0.55-1.30); GLOMERULAR FILTRATION RATE > 60.0 (>45); GLUCOSE, FASTING 82 MG/DL (74-106); POTASSIUM SERUM 4.4 MMOL/L (3.5-5.1); SODIUM LEVEL 139 MMOL/L (136-145); TOTAL PROTEIN 6.7 G/DL (5.7-8.2)
== END ==
LOC: M PLALAB 12:53
PROVIDERS: ATTEND Psychiatry & Neurology Neurology
DX: R56.9 Unspecified convulsions (principal)

== ENCOUNTER → 2022-10-23 | Outpatient (CLI) | payer MEDICAID | LOC: M PLAIMG 16:10 | PROVIDERS: ATTEND Physician Assistant | DX: M25.641 Stiffness of right hand, not elsewhere classified (principal); M25.461 Effusion, right knee; M17.11 Unilateral primary osteoarthritis, right knee ==

== ENCOUNTER 2022-12-13 13:05 | Emergency (ER) | payer MEDICAID, OTHER ==
[~2022-12-13] VITALS: Ht 162.6 cm; Wt 65.9 kg
[2022-12-13 17:51] VITALS: BP 134/75; TEMP 97; O2SAT 96
== END 2022-12-13 17:56 | disposition home or self-care (01) ==
LOC: M ED 13:05
DX: R93.6 Abnormal findings on diagnostic imaging of limbs (principal); R22.41 Localized swelling, mass and lump, right lower limb; Z86.73 Personal history of transient ischemic attack (TIA), and cerebral infarction without residual deficits; R56.9 Unspecified convulsions; M85.80 Other specified disorders of bone density and structure, unspecified site; Z79.82 Long term (current) use of aspirin; Z79.899 Other long term (current) drug therapy

== ENCOUNTER → 2023-01-08 | Outpatient (CLI) | payer OTHER | LOC: M WHC 15:56 | PROVIDERS: ATTEND Nurse Practitioner Family | DX: Z12.39 Encounter for other screening for malignant neoplasm of breast (principal) ==

== ENCOUNTER → 2023-02-07 | Outpatient (CLI) | payer MEDICAID, OTHER ==
[2023-02-07 10:47] LABS: FREE T4 1.02 NG/DL (0.89-1.76); THYROID STIMULATING HORMONE 3.162 uIU/ML (0.55-4.78)
[2023-02-07 10:48] LABS: TOTAL 25(OH) VITAMIN D 63.2 NG/ML (20.0-100.0)
[2023-02-07 10:49] LABS: ALBUMIN 3.3 G/DL (3.2-5.2); ALKALINE PHOSPHATASE 82 U/L (46-116); ALT/SGPT 14 U/L (7.0-40); AST/SGOT 13 U/L (<34); BILIRUBIN,TOTAL 0.4 MG/DL (0.3-1.2); BLOOD UREA NITROGEN 18 MG/DL (9-23); CALCIUM LEVEL 9.4 MG/DL (8.3-10.6); CARBON DIOXIDE LEVEL 29 MMOL/L (20-31); CHLORIDE LEVEL 107 MMOL/L (98-107); CHOLESTEROL LEVEL 166 MG/DL (<200); CHOLESTEROL RISK RATIO 3.61 (<5); CREATININE FOR GFR 0.65 MG/DL (0.55-1.30); GLOMERULAR FILTRATION RATE > 60.0 (>45); GLUCOSE, FASTING 85 MG/DL (74-106); HDL CHOLESTEROL 45.9 MG/DL (>40); LDL CHOLESTEROL 101.7 MG/DL (<100); NON-HDL-C 120.1 MG/DL; POTASSIUM SERUM 4.5 MMOL/L (3.5-5.1); SODIUM LEVEL 142 MMOL/L (136-145); TOTAL PROTEIN 6.6 G/DL (5.7-8.2); TRIGLYCERIDES LEVEL 92 MG/DL (<150)
[2023-02-07 11:14] LABS: HEMOGLOBIN A1c 5.2 % (4.0-6.0)
== END ==
LOC: M PLALAB 07:48
PROVIDERS: ATTEND Nurse Practitioner Family
DX: E78.5 Hyperlipidemia, unspecified (principal); R73.01 Impaired fasting glucose; E55.9 Vitamin D deficiency, unspecified; R53.83 Other fatigue

== ENCOUNTER → 2023-11-23 | Outpatient (CLI) | payer OTHER ==
[2023-11-23 11:20] LABS: BASO # 0.1 10^3/uL (0.0-0.2); BASO % 0.7 % (0.0-1.0); EOS # 0.2 10^3/uL (0.0-0.5); EOS % 2.4 % (0.0-3.0); HEMATOCRIT 41.1 % (36.0-47.0); HEMOGLOBIN 13.5 g/dl (12.0-15.5); LYMPH # 1.6 10^3/uL (1.5-5.0); LYMPH % 21.6 % (24.0-44.0); MEAN CORPUSCULAR HEMOGLOBIN 28.6 pg (27.0-33.0); MEAN CORPUSCULAR HGB CONC 32.8 g/dl (32.0-36.5); MEAN CORPUSCULAR VOLUME 87.1 fl (80.0-96.0); MONO # 0.6 10^3/uL (0.0-0.8); MONO % 8.3 % (2.0-8.0); NEUTROPHILS # 4.9 10^3/uL (1.5-8.5); NEUTROPHILS % 66.9 % (36.0-66.0); PLATELET COUNT, AUTOMATED 154 10^3/uL (150-450); RED BLOOD COUNT 4.72 10^6/uL (4.00-5.40); WHITE BLOOD COUNT 7.4 10^3/uL (4.0-10.0)
[2023-11-23 11:37] LABS: ERYTHROCYTE SEDIMENTATION RATE 23 mm/hr (0-30)
[2023-11-23 11:43] LABS: HEMOGLOBIN A1c 5.3 % (4.0-6.0)
[2023-11-23 11:51] LABS: C REACTIVE PROTEIN QUANTITATIV < 0.40 MG/DL (<1.0)
[2023-11-23 11:53] LABS: ALBUMIN 3.9 G/DL (3.2-5.2); ALKALINE PHOSPHATASE 80 U/L (46-116); ALT/SGPT 16 U/L (7.0-40); AST/SGOT 14 U/L (<34); BILIRUBIN,TOTAL 0.4 MG/DL (0.3-1.2); BLOOD UREA NITROGEN 16 MG/DL (9-23); CALCIUM LEVEL 9.5 MG/DL (8.3-10.6); CARBON DIOXIDE LEVEL 30 MMOL/L (20-31); CHLORIDE LEVEL 105 MMOL/L (98-107); CHOLESTEROL LEVEL 211 MG/DL (<200); CHOLESTEROL RISK RATIO 3.65 (<5); CREATININE FOR GFR 0.73 MG/DL (0.55-1.30); GLOMERULAR FILTRATION RATE > 60.0 (>45); GLUCOSE, FASTING 83 MG/DL (74-106); HDL CHOLESTEROL 57.8 MG/DL (>40); LDL CHOLESTEROL 131.6 MG/DL (<100); NON-HDL-C 153.2 MG/DL; POTASSIUM SERUM 4.7 MMOL/L (3.5-5.1); SODIUM LEVEL 139 MMOL/L (136-145); TOTAL PROTEIN 6.7 G/DL (5.7-8.2); TRIGLYCERIDES LEVEL 108 MG/DL (<150)
[2023-11-23 11:54] LABS: THYROID STIMULATING HORMONE 3.051 uIU/ML (0.55-4.78)
[2023-11-23 11:55] LABS: FREE T4 1.01 NG/DL (0.89-1.76); RHEUMATOID FACTOR QUANT 15.5 IU/ML (<14)
== END ==
LOC: M PLALAB 08:41
PROVIDERS: ATTEND Nurse Practitioner Family
DX: Z00.00 Encounter for general adult medical examination without abnormal findings (principal); E78.5 Hyperlipidemia, unspecified; E55.9 Vitamin D deficiency, unspecified; R73.01 Impaired fasting glucose; R76.8 Other specified abnormal immunological findings in serum

== ENCOUNTER → 2024-01-10 | Outpatient (CLI) | payer OTHER | LOC: M WHC 12:15 | PROVIDERS: ATTEND Nurse Practitioner Family | DX: Z12.31 Encounter for screening mammogram for malignant neoplasm of breast (principal); R92.333 Mammographic heterogeneous density, bilateral breasts ==

== ENCOUNTER → 2024-07-01 | Outpatient (CLI) | payer MEDICARE, MEDICAID | LOC: M WUC 11:05 | PROVIDERS: ATTEND Internal Medicine | DX: R76.8 Other specified abnormal immunological findings in serum (principal); R76.0 Raised antibody titer; M17.0 Bilateral primary osteoarthritis of knee; M25.50 Pain in unspecified joint; M19.041 Primary osteoarthritis, right hand; M19.042 Primary osteoarthritis, left hand; M19.031 Primary osteoarthritis, right wrist; M19.032 Primary osteoarthritis, left wrist ==

== ENCOUNTER → 2025-04-23 | Outpatient (CLI) | payer MEDICARE, MEDICAID ==
[2025-04-23 12:58] LABS: BASO # 0.1 10^3/uL (0.0-0.2); BASO % 0.8 % (0.0-1.0); EOS # 0.2 10^3/uL (0.0-0.5); EOS % 3.8 % (0.0-3.0); LYMPH # 1.8 10^3/uL (1.5-5.0); LYMPH % 29.5 % (24.0-44.0); MONO # 0.5 10^3/uL (0.0-0.8); MONO % 8.7 % (2.0-8.0); NEUTROPHILS # 3.4 10^3/uL (1.5-8.5); NEUTROPHILS % 57.0 % (36.0-66.0); PLATELET COUNT, AUTOMATED 202 10^3/uL (150-450)
[2025-04-23 13:16] LABS: ALT/SGPT 22.0 U/L (7.0-40); AST/SGOT 23.0 U/L (<34); CALCIUM LEVEL 9.2 MG/DL (8.3-10.6); CARBON DIOXIDE LEVEL 28.0 MMOL/L (20-31); CHLORIDE LEVEL 105.0 MMOL/L (98-107); CHOLESTEROL LEVEL 192.0 MG/DL (<200); CHOLESTEROL RISK RATIO 3.35 (<5); CREATININE FOR GFR 0.78 MG/DL (0.55-1.30); GLOMERULAR FILTRATION RATE 84.2 (>45); LDL CHOLESTEROL 105.3 MG/DL (<100); NON-HDL-C 134.7 MG/DL; POTASSIUM SERUM 3.9 MMOL/L (3.5-5.1); PTH INTACT 45.1 PG/ML (18.5-88.0); SODIUM LEVEL 142.0 MMOL/L (136-145); TRIGLYCERIDES LEVEL 147.0 MG/DL (<150)
[2025-04-23 13:18] LABS: TOTAL 25(OH) VITAMIN D 83.3 NG/ML (20.0-100.0)
== END ==
LOC: M WUC 10:13
PROVIDERS: ATTEND Nurse Practitioner Family
DX: G40.909 Epilepsy, unspecified, not intractable, without status epilepticus (principal); E55.9 Vitamin D deficiency, unspecified; F32.9 Major depressive disorder, single episode, unspecified; E78.5 Hyperlipidemia, unspecified